=== PATIENT | male | born 1985 | race Native Hawaiian/Other Pacific Islander ===

== ENCOUNTER 2016-11-09 11:07 | Inpatient (IN) | payer MEDICAID, OTHER ==
[2016-11-09 12:29] LABS: BASO # 0.1 K/uL (0.0-0.2); BASO % 0.8 % (0.0-2.0); EOS # 0.1 K/uL (0.0-0.7); EOS % 0.6 % (0.0-4.0); HEMATOCRIT 45.5 % (35.0-51.0); LYMPH # 2.3 K/uL (1.0-4.3); MEAN CELL VOLUME 86.6 fl (80.0-94.0); MEAN CORPUSCULAR HEMOGLOBIN 28.3 pg (27.0-31.0); MEAN CORPUSCULAR HGB CONC 32.7 g/dL (33.0-37.0); MONO # 0.9 K/uL (0.0-0.8); NEUT # 11.8 K/uL (1.8-7.0); NEUT % 77.6 % (50.0-75.0); NRBC % 0.1 % (0.0-0.0); RED CELL DISTRIBUTION WIDTH 13.6 % (11.5-14.5); WHITE BLOOD COUNT 15.3 K/uL (4.8-10.8)
[2016-11-09 12:40] LABS: ALB/GLOB RATIO 1.3 (1.0-2.1); ALCOHOL SERUM < 10 mg/dl (0-10); ALKALINE PHOSPHATASE 81 U/L (38-126); ALT/SGPT 79 U/L (21-72); AST/SGOT 44 U/L (17-59); BLOOD UREA NITROGEN 13 mg/dl (9-20); CALCIUM 9.4 mg/dL (8.4-10.2); CARBON DIOXIDE 24 mmol/L (22-30); CHLORIDE 102 mmol/L (98-107); GFR AFRICAN-AMERICAN > 60; GLUCOSE,RANDOM 111 mg/dL (75-110); MAGNESIUM 2.2 MG/DL (1.6-2.3); POTASSIUM 4.8 MMOL/L (3.6-5.0); SODIUM 138 mmol/l (132-148); TOTAL PROTEIN 8.1 G/DL (6.3-8.2)
[2016-11-09] MEDS ORDERED: Sodium Chloride 0.9% 1,000 ML IV STA (12:43)
--- NOTE | 2016-11-09 12:47 | CT ---
PROCEDURE: CT HEAD WITHOUT CONTRAST. HISTORY: nystagmus COMPARISON: None available. TECHNIQUE: Axial computed tomography images were obtained through the head/brain without intravenous contrast. Radiation dose: Total exam DLP = 1474 mGy-cm. This CT exam was performed using one or more of the following dose reduction techniques: Automated exposure control, adjustment of the mA and/or kV according to patient size, and/or use of iterative reconstruction technique. FINDINGS: HEMORRHAGE: No intracranial hemorrhage. BRAIN: No mass effect or edema. No atrophy or chronic microvascular ischemic changes. VENTRICLES: Unremarkable. No hydrocephalus. CALVARIUM: Unremarkable. PARANASAL SINUSES: Unremarkable as visualized. No significant inflammatory changes. MASTOID AIR CELLS: Unremarkable as visualized. No inflammatory changes. OTHER FINDINGS: None. IMPRESSION: Normal CT of the Head.
--- NOTE | 2016-11-09 14:13 | CARD ---
APPROVED REPORT EKG Measurement Heart [id number] [place] [id number] <Conclusion> Sinus tachycardia Otherwise normal ECG
--- NOTE | 2016-11-09 15:32 | RAD ---
HISTORY: tachycardia COMPARISON: No prior. FINDINGS: LUNGS: No active pulmonary disease. PLEURA: No significant pleural effusion identified, no pneumothorax apparent. CARDIOVASCULAR: Normal. OSSEOUS STRUCTURES: No significant abnormalities. VISUALIZED UPPER ABDOMEN: Normal. OTHER FINDINGS: None. IMPRESSION: No active disease.
--- NOTE | 2016-11-09 15:52 | ED PDOC ---
HPI: Psych/Substance Abuse Time Seen by Provider: 11/09/16 11:45 Chief Complaint (Nursing): Psychiatric Evaluation Chief Complaint (Provider): pysch eval Additional Complaint(s): 31yo M in ED for eval of depression not talking, eating or drinking x 1 week. father states that he has similar episode in the past.pt is compliant with Rx medication dosages. father denies any noted recent trauma, injury, fever, difficulty with breathing , vomiting , diarrhea, hematuira, dec urination, skin lesions, head injury, foreign travel,. Past Medical History Reviewed: Historical Data, Nursing Documentation, Vital Signs Vital Signs: Last Vital Signs Temp 98.1 F 11/09/16 11:14 Pulse 124 H 11/09/16 11:14 Resp 16 11/09/16 11:14 BP 156/108 H 11/09/16 11:14 Pulse Ox 97 11/09/16 11:14 - Medical History PMH: No Chronic Diseases, Depression - Family History Family History: States: No Known Family Hx - Allergies Allergies/Adverse Reactions: Allergies Allergy/AdvReac Type Severity Reaction Status Date / Time No Known Allergies Allergy Verified 11/09/16 11:14 Review of Systems ROS Statement: Except As Marked, All Systems Reviewed And Found Negative Psych: Positive for: Depression Physical Exam - Reviewed Nursing Documentation Reviewed: Yes Vital Signs Reviewed: Yes - Physical Exam Appears: Positive for: Non-toxic, No Acute Distress Head Exam: Positive for: ATRAUMATIC, NORMAL INSPECTION, NORMOCEPHALIC Skin: Positive for: Normal Color, Warm, DRY Eye Exam: Positive for: EOMI, Normal appearance, PERRL ENT: Positive for: Normal ENT Inspection Neck: Positive for: Normal, Painless ROM Cardiovascular/Chest: Positive for: Regular Rate, Rhythm Respiratory: Positive for: CNT, Normal Breath Sounds Gastrointestinal/Abdominal: Positive for: Normal Exam, Bowel Sounds, Soft Back: Positive for: Normal Inspection Extremity: Positive for: Normal ROM Neurologic/Psych: Positive for: Alert, Oriented, Other (not willing to speak, crying ) - Laboratory Results Result Diagrams: 11/09/16 12:15 11/09/16 12:15 - ECG ECG Rhythm: Positive for: Normal QRS, Normal ST Segment, Sinus Tachycardia O2 Sat by Pulse Oximetry: 97 - Radiology X-Ray: Interpreted by Ok X-Ray Interpretation: No Acute Disease - Progress ED Course And Treament: impression: Catonic Pt will be evaluated by crisis however pt will be medically evaluated to be cleared. PT with elevated WBC. pt will get cbc/cmp/UA/drug screen/asa/tylenol level/chest xray/ekg/CAt scan pt given fluids IV VISH Orourke MD aware crisis made aware-who consulted MD Lashonda-suggested to provide pt with ativan IM for cataonia. pt given ativan 2mg IM and pt drastically improved, now able to speak and eat. PT signed in voluntarily Medical Decision Making Medical Decision Making: pt to be admitted for major depressive d/o under MD lashonda. US: negative for UTI. WBC elevation may be stress induced. chest xray engative. pt well appearing and afrebrile in ED. pt not c/o of DIEGO and much more alert, tolerating PO well no indication for meningitis work up at this time. Disposition - Clinical Impression Clinical Impression: Major depression - Patient ED Disposition Is Patient to be Admitted: Yes - Disposition Disposition Time: 17:17 Condition: STABLE - Pt Status Changed To: Hospital Disposition Of: Inpatient - Admit Certification Admit to Inpatient:: After my assessment, the patient will require hospitalization for at least two midnights. This is because of the severity of symptoms shown, intensity of services needed, and/or the medical risk in this patient being treated as an outpatient. - POA Present On Arrival: None
[2016-11-09 16:59] LABS: RBC URINE 4 /hpf (0-3); URINE BACTERIA OCC (<OCC); URINE BILIRUBIN NEGATIVE (NEGATIVE); URINE BLOOD NEGATIVE (NEGATIVE); URINE COLOR YELLOW (YELLOW); URINE GLUCOSE (UA) NEG (Normal); URINE KETONE NEGATIVE (NEGATIVE); URINE LEUKOCYTE ESTERASE NEG Leu/uL (Negative); URINE PROTEIN 30 mg/dL (NEGATIVE); URINE UROBILINOGEN 0.2-1.0 mg/dL (0.2-1.0); WBC URINE 2 /hpf (0-5)
[2016-11-09] MEDS ORDERED: DiphenhydrAMINE 50 mg/ml Inj IM PRN (18:32)
[2016-11-09] MEDS ORDERED: Alum-Mag Hydrox-Simethicone Susp (30 mL) PO PRN (18:32)
[2016-11-09] MEDS ORDERED: Magnesium Hydroxide Susp 30 ml UD PO PRN (18:32)
[2016-11-09 19:08] LABS: CHOLESTEROL 189 mg/dL (0-199)
--- NOTE | 2016-11-10 12:55 | CARD ---
APPROVED REPORT EKG Measurement Heart [id number] <Conclusion> Normal sinus rhythm Normal ECG
[2016-11-10 13:12] LABS: ALB/GLOB RATIO 1.3 (1.0-2.1); ALKALINE PHOSPHATASE 78 U/L (38-126); ALT/SGPT 98 U/L (21-72); AST/SGOT 79 U/L (17-59); BILIRUBIN,TOTAL 0.5 mg/dl (0.2-1.3); BLOOD UREA NITROGEN 12 mg/dl (9-20); CALCIUM 9.3 mg/dL (8.4-10.2); CARBON DIOXIDE 26 mmol/L (22-30); CHLORIDE 101 mmol/L (98-107); GFR AFRICAN-AMERICAN > 60; GLUCOSE,RANDOM 110 mg/dL (75-110); POTASSIUM 4.2 MMOL/L (3.6-5.0); SODIUM 137 mmol/l (132-148); TOTAL PROTEIN 7.6 G/DL (6.3-8.2)
--- NOTE | 2016-11-10 13:41 | PCM.RRTMUL ---
FLARE STITCHER Nurse Assessment - Situation FLARE STITCHER Responder Arrival Time:: 12:16 Location:: [facility] FLARE STITCHER Reason for Call: Change in Mental Status FLARE STITCHER Called By: RN - IV IV Inserted during FLARE STITCHER?: No - Respiratory Oxygen Delivery Method:: Room Air Received Nebulizer Treatments:: No Was the Patient Ventilated with Bag/Mask 100% O2?: No Secretions Suctioned?: No Was the Patient Intubated?: No - Medication Medications Administered During FLARE STITCHER :: Ativan 2mg IM - Diagnostic Test Ordered EKG:: Yes Chest X-Ray:: No CT Scan:: No - Stat Labs Ordered FLARE STITCHER Stat Labs Ordered:: CBC, BMP, LACTIC ACID CPR started during FLARE STITCHER?: No - Vital Signs Blood Pressure:: 139/91 Pulse Rate:: 101 Respiratory Rate:: 23 Oxygen Saturation:: 97 - Jon Coma Scale Coma Scale Eye Opening:: Spontaneous Coma Scale Motor:: Obeys Commands Movement Coma Scale Verbal:: No response Coma Scale Total:: 11 - Time FLARE STITCHER Ended Time FLARE STITCHER Ended:: 12:30 - Vital Signs at end of FLARE STITCHER Blood Pressure:: 134/85 Pulse Rate:: 98 Respiratory Rate:: 21 Temperature:: 98.4 F O2 Sat by Pulse Oximetry:: 95 - Recommendations 5) FLARE STITCHER Level of Care Recommendations: Remain in current setting 6) Notifications: Attending Physician I.Reason for FLARE STITCHER - A) Acute Change in Patient: (Select all that apply): Acute change in mental status (Non responsive, eyes open) Subjective: FLARE STITCHER Time: 12:20pm FLARE STITCHER Location: Psych Unit FLARE STITCHER Reason: Nonresponsive S: FLARE STITCHER called by RN bc the patient was found to be unresponsive to the nurse. On arrival, the patient was noted with be lying on the bed with his eyes open and not responsiveness to voice or pain. O: FLARE STITCHER Vitals (12:25pm): Temp 97.7, BP 139/91, HR 94, 96% on Rm air FLARE STITCHER Vitals (12:28pm): Temp 97.7, BP134/85, HR 98, 94% on Rm air General: Pt seen lying in bed, patient is awake with eyes open, difficult to ascern if pt is oriented. Verbally unresponsive but obeys commands. NAD Cardiac: Normal S1, S2 Lungs: Clear to auscultation BL Peripheral: Neurological: PERRLA, Flaccid Rigidity, No incontinence, Unable to evaluate cranial nerves, flat affect FLARE STITCHER Interventions: 1) CBC, CMP, CK, TSH, Prolactin, Serum Tox 2) ECG A/P: 31 yo male w/ a hx of major depressive disorder and catatonia was found unresponsive with eyes open on his bed with a normal ECG and normal vital signs 1. Follow Labs FLARE STITCHER End Time: 12:30pm FLARE STITCHER Resident: Dr. Ruddy Cantu FLARE STITCHER Leader: Dr. Pedraza
[2016-11-10 13:45] LABS: THYROID STIMULATING HORMONE 1.44 mIU/ML (0.46-4.68)
--- NOTE | 2016-11-10 14:54 | PCM.PSYCH ---
Initial Psychiatric Evaluation - Initial Psychiatric Evaluation Type of Admission: Voluntary Legal Status: Capacity Chief Complaint (in patient's own words): "I'm depressed." Patient's Reaction to Hospitalization: HPI: 31yo [place] male referred by Dr. Whitten due to catatonic. As per history patient has been catatonic for 2 days w/ poor sleep and appetite. Patient has a history of depression since his mother . He was a limited historian due to his periods of catatonia and after he recovered s/p receiving Ativan, he still spoke very slowly w/ poverty of speech. Denies AH/VH/SI/HI. PPHx: Outpatient tx w. Dr. Whitten, currently prescribed Seroquel and Remeron. Patient has a h/o admission to [facility] 4 years ago. MHx: HTN ALL: NKDA SHx: Denies drugs/etoh. Current Medications: Active Medications Generic Name Dose Route Start Last Admin Trade Name Freq PRN Reason Stop Dose Admin Acetaminophen 650 mg 11/09/16 18:32 Tylenol 325mg Tab PO Q4 PRN Fever >100.4 F Al Hydrox/Mg Hydrox/Simethicone 30 ml 11/09/16 18:32 Maalox Plus 30 Ml PO Q4 PRN Dyspepsia Diphenhydramine HCl 50 mg 11/09/16 18:32 11/09/16 21:39 Benadryl IM 50 mg Q6 PRN Administration Extrapyramidal S/S Unable PO Diphenhydramine HCl 50 mg 11/09/16 18:32 Benadryl PO Q6 PRN Extrapyramidal Symptoms Haloperidol 5 mg 11/09/16 18:23 Haldol PO Q4 PRN Agitation Haloperidol Lactate 5 mg 11/09/16 18:23 11/09/16 21:39 Haldol IM 5 mg Q4 PRN Administration Agitation, Unable to Take PO Lorazepam 2 mg 11/09/16 18:32 Ativan PO Q4 PRN Anxiety/Agitation Lorazepam 2 mg 11/09/16 21:46 Ativan IM Q4 PRN Anxiety/Agitation,Unable PO Magnesium Hydroxide 30 ml 11/09/16 18:32 Milk Of Magnesia PO HS PRN Constipation Trazodone HCl 50 mg 11/09/16 22:00 11/10/16 02:35 Desyrel PO Not Given HS JUAN JOSE Past Psychiatric History - Past Psychiatric History Previous Treatment History: Inpatient Pertinent Medical Hx (Current Medical&Sleep Prob, Allergies): Allergies Allergy/AdvReac Type Severity Reaction Status Date / Time No Known Allergies Allergy Verified 11/09/16 11:14 Review of Systems - Psychiatric Psychiatric: As Per HPI, Abnormal Sleep Pattern, Anhedonia, Behavioral Changes, Change in Appetite, Depression, Hopelessness, Other (Catatonia) Mental Status Examination - Personal Presentation Personal Presentation: Looks stated age - Affect Affect: Blunted - Motor Activity Motor Activity: Calm - Reliability in Providing Information Reliability in Providing Information: Other (Poor due to catatonia) - Speech Speech: Coherent, Other (Poverty of speech) - Formal Thought Process Formal Thought Process: Other (Poverty of speech) - Obsessions/Compulsions Obsessions: No Compulsions: No - Cognitive Functions Orientation: Person, Place, Situation, Time Sensorium: Alert Estimate of Intelligence: Average Judgement: Intact, as evidence by: Insight regarding need for hospitalization Memory: Recent intact, as evidence by: Ability to recall events of the day, Remote intact, as evidenced by: Abilit to recall sig. life events, Remote intact , as evidenced by: Ability to recall historical events - Risk Risk: Diminished functioning - Strength & Assets Inventory Strength & Assets Inventory: Family support, Cooperative DSM 5 DX - DSM 5 DSM 5 Diagnosis: Major Depressive Disorder w/ Catatonia; r/o psychotic disorder - Recommended/Plan of Treatment Treatment Recommendations and Plan of Treatment: -Admit to psychiatry -Continue Remeron 15 mg PO HS -Medicine consult -Neurology consult; r/o seizure d/o or other acute neurological issues -Individual and group therapy -Ativan PRN catatonia Projected ELOS: 5-7 days Discharge Plan and Discharge Criteria: Discharge when psychiatrically stable
--- NOTE | 2016-11-10 18:30 | CP.PCM.CON ---
History of Present Illness - History of Present Illness History of Present Illness: 31 y/o male with PMH depression was brought to ER for psych eval by his father since patient has not been eating talking, drinking for 1 week. As per chart and staff patient has been suffering from depression for the last 5 years since his mom . He has history of severe depression with catatonia. He was admitted in psych unit after being medically cleared by ER . While in psych TRUCK SALES MANAGER was called for patient being unresponsive and catatonic Patient found to be hemodynamically stable, afebrile in NAD, non verbal but able to follow simple commands , with no neuro deficits Medicine responded to TRUCK SALES MANAGER and also called for medical consult Patient not responding to questions, ambulating in unit ,tolerating PO intake No recent trauma , fever vomiting , abdominal pain , nausea, hematuria , head injury, trauma , travel as per father Allergies ; NKDA PMH Depression Medications ;None Surgery ; unable to obtain Family history ; unable to obtain Social history ; unable to obtain ROS ; as per father no fever , nausea, vomiting , chills, urinary symptoms, hematuria , DIEGO, head trauma , recent traval Past Patient History - Infectious Disease Hx of Infectious Diseases: None - Tetanus Immunizations Tetanus Immunization: Unknown - Past Medical History & Family History Past Medical History?: Yes Past Family History: Reviewed and not pertinent - Past Social History Smoking Status: Never Smoked Chewing Tobacco Use: No Cigar Use: No Alcohol: None Home Situation {Lives}: With Family - CARDIAC Hx Cardiac Disorders: No Hx Hypertension: No - PULMONARY Hx Tuberculosis: No - NEUROLOGICAL HX Cerebrovascular Accident: No Hx Seizures: No - HEMATOLOGICAL/ONCOLOGICAL Hx Cancer: No Hx Human Immunodeficiency Virus (HIV): No - GENITOURINARY/GYNECOLOGICAL Hx Sexually Transmitted Disorders: No - PSYCHIATRIC Hx Substance Use: No Meds Allergies/Adverse Reactions: Allergies Allergy/AdvReac Type Severity Reaction Status Date / Time No Known Allergies Allergy Verified 11/09/16 11:14 - Medications Medications: Current Medications Acetaminophen (Tylenol 325mg Tab) 650 mg PO Q4 PRN PRN Reason: Fever >100.4 F Al Hydrox/Mg Hydrox/Simethicone (Maalox Plus 30 Ml) 30 ml PO Q4 PRN PRN Reason: Dyspepsia Diphenhydramine HCl (Benadryl) 50 mg IM Q6 PRN PRN Reason: Extrapyramidal S/S Unable PO Last Admin: 11/09/16 21:39 Dose: 50 mg Diphenhydramine HCl (Benadryl) 50 mg PO Q6 PRN PRN Reason: Extrapyramidal Symptoms Haloperidol (Haldol) 5 mg PO Q4 PRN PRN Reason: Agitation Haloperidol Lactate (Haldol) 5 mg IM Q4 PRN PRN Reason: Agitation, Unable to Take PO Last Admin: 11/09/16 21:39 Dose: 5 mg Lorazepam (Ativan) 2 mg PO Q4 PRN PRN Reason: Anxiety/Agitation Lorazepam (Ativan) 2 mg IM Q4 PRN PRN Reason: Anxiety/Agitation,Unable PO Last Admin: 11/10/16 17:26 Dose: 2 mg Magnesium Hydroxide (Milk Of Magnesia) 30 ml PO HS PRN PRN Reason: Constipation Mirtazapine (Remeron) 15 mg PO HS JUAN JOSE Physical Exam - Constitutional Appears: Well, No Acute Distress, Other (overweight ) - Head Exam Head Exam: ATRAUMATIC, NORMAL INSPECTION, NORMOCEPHALIC - Eye Exam Eye Exam: EOMI, Normal appearance, PERRL Pupil Exam: NORMAL ACCOMODATION - ENT Exam ENT Exam: Mucous Membranes Moist, Normal Exam - Neck Exam Neck exam: Positive for: Full Rom, Normal Inspection - Respiratory Exam Respiratory Exam: Clear to Auscultation Bilateral, NORMAL BREATHING PATTERN. absent: Rhonchi, Wheezes - Cardiovascular Exam Cardiovascular Exam: REGULAR RHYTHM, RRR, +S1, +S2. absent: JVD - GI/Abdominal Exam GI & Abdominal Exam: Normal Bowel Sounds, Soft. absent: Distended, Guarding, Rebound, Tenderness - Rectal Exam Rectal Exam: Deferred - Extremities Exam Extremities exam: Positive for: normal capillary refill, normal inspection, pedal pulses present. Negative for: pedal edema - Neurological Exam Neurological exam: Alert, CN II-XII Intact Additional comments: non verbal good eye contact follows simple commands moves all 4 extremities - Psychiatric Exam Psychiatric exam: Flat Affect - Skin Skin Exam: Dry, Intact, Normal Color, Warm Results - Vital Signs Recent Vital Signs: Last Vital Signs Temp 97.3 F L 11/10/16 17:53 Pulse 112 H 11/10/16 17:53 Resp 20 11/10/16 17:53 BP 136/96 H 11/10/16 17:53 Pulse Ox 99 11/10/16 17:53 - Labs Result Diagrams: 11/09/16 12:15 11/10/16 12:30 Labs: Laboratory Results - last 24 hr 11/09/16 11/10/16 18:58 12:30 Sodium 137 Potassium 4.2 Chloride 101 Carbon Dioxide 26 Anion Gap 14 BUN 12 Creatinine 0.7 L Est GFR ( Amer) > 60 Est GFR (Non-Af Amer) > 60 Random Glucose 110 Calcium 9.3 Total Bilirubin 0.5 AST 79 H D ALT 98 H D Alkaline Phosphatase 78 Total Creatine Kinase 2992 H Total Protein 7.6 Albumin 4.3 Globulin 3.2 Albumin/Globulin Ratio 1.3 Triglycerides 245 H Cholesterol 189 LDL Cholesterol Direct 103 HDL Cholesterol 43 TSH 3rd Generation 1.44 Assessment & Plan - Assessment and Plan (Free Text) Assessment: 31 y/o male with PMH depression was brought to ER for psych eval by his father since patient has not been eating talking, drinking for 1 week. As per chart and staff patient has been suffering from depression for the last 5 years since his mom . He has history of severe depression with catatonia. He was admitted in psych unit after being medically cleared by ER . While in psych TRUCK SALES MANAGER was called for patient being unresponsive and catatonic Patient found to be hemodynamically stable, afebrile in NAD, non verbal but able to follow simple commands , with no neuro deficits Medicine responded to TRUCK SALES MANAGER and also called for medical consult Patient not responding to questions, ambulating in unit ,tolerating PO intake No recent trauma , fever vomiting , abdominal pain , nausea, hematuria , head injury, trauma , travel as per father 1. Depression with catatonia CT head showed no acute pathology Ativan PRN TSH - normal patient is medically stable Continue management as per psych EEG to rule out seizure disorder Neuro eval 2. Leukocytosis Most likely reactive no signs of infection CXR showed no acute pathology UA - clear No fever 3. Elevated CPK unclear etiology Medication side effect ? continue oral hydration renal fxn is stable 4. Dyslipidemia diet no statin for now due to mild elevation of LFT-s 5. Transaminitis probably medication side effect Continue monitoring
[2016-11-11] MEDS: Dextrose 5%/0.45% NS 1,000 ML IV SCH ×4 (03:20→17:41)
[2016-11-11 07:22] LABS: MAGNESIUM 2.3 MG/DL (1.6-2.3)
[2016-11-11 07:25] LABS: HEMATOCRIT 41.5 % (35.0-51.0); MEAN CELL VOLUME 86.3 fl (80.0-94.0); MEAN CORPUSCULAR HEMOGLOBIN 28.6 pg (27.0-31.0); MEAN CORPUSCULAR HGB CONC 33.2 g/dL (33.0-37.0); RED CELL DISTRIBUTION WIDTH 13.3 % (11.5-14.5); WHITE BLOOD COUNT 11.4 K/uL (4.8-10.8)
[2016-11-11 07:50] LABS: THYROID STIMULATING HORMONE 2.47 mIU/ML (0.46-4.68)
--- NOTE | 2016-11-11 10:37 | PCM.PYCHPN ---
Psychiatric Progress Note - Psychiatric Progress Note Patient seen today, length of contact: Patient evaluated, case discussed with team, chart reviewed Patient Chief Complaint: "I'm depressed." Problems Identified/Issues Discussed: Patient continues to have periods of catatonia and is receiving PRN ativan. Patient has poor insight into these periods and does not realize they are happening during or after they occur. He reports continued depression. We discussed starting Effexor and Klonopin. Patient continues to report depressive symptoms. Neurology and medicine consults ordered. Medication Change: Yes (Start Effexor 37.5 mg PO Daily, Start Klonopin 0.5 mg PO TID) Medical Record Reviewed: Yes Mental Status Examination - Cognitive Function Orientation: Person, Place, Situation, Time Memory: Intact Attention: WNL Concentration: WNL Association: WNL Fund of Knowledge: [facility] Decription of patient's judgement and insights: Poor insight/ fair judgment - Mood Mood: Depressed - Affect Affect: Blunted - Speech Speech: Soft - Formal Thought Process Formal Thought Process: Other (Poverty of speech) Psychotic Thoughts and Behaviors: Poverty of speech/thought; periods of catatonia - Suicidal Ideation Suicidal Ideation: No - Homicidal Ideation Homicidal Ideation: No Goal/Treatment Plan - Goal/Treatment Plan Need for Continued Stay: Remain at risks for inpatient hospitalization, Severe depression anxiety, Discharge may exacerbated symptoms, Severe functional impairment Progress Toward Problem(s) and Goals/Treatment Plan: MDD w/ catatonic features; r/o psychotic disorder; r/o seizure d/o or other acute neurologic process -Continue Remeron 15 mg PO HS -Start Effexor 37.5 mg PO Daily -Start Klonopin 0.5 mg PO TID -Medicine consult -Neurology consult; r/o seizure d/o or other acute neurological issues -MRI ordered -Individual and group therapy -Ativan PRN catatonia Estimated Date of D/C: 11/15/16 - Smoking Cessation Smoking Cessation Initiated: No Reason for not providing: Not indicated
[2016-11-11 12:40] LABS: CHOLESTEROL 175 mg/dL (0-199)
[2016-11-11 13:05] LABS: T4 7.53 ug/dL (5.5-11.0)
[2016-11-11] MEDS ORDERED: Gadodiamide 287 MG/ML VIAL (15ML) IV ONE (13:42)
--- NOTE | 2016-11-11 16:28 | MRI ---
PROCEDURE: MRI BRAIN WITHOUT CONTRAST HISTORY: intracranial pathology. History of nystagmus. COMPARISON: Comparison is made to the previous CT dated 11/16/2016 TECHNIQUE: Multiplanar, multisequence MR images of the brain were obtained without intravenous contrast enhancement. FINDINGS: HEMORRHAGE: None DWI: No evidence of an acute or early subacute infarction. BRAIN PARENCHYMA: No mass effect or edema. No atrophy or chronic microvascular ischemic changes. VENTRICLES: Unremarkable. No hydrocephalus. CRANIUM: Unremarkable. ORBITS: Grossly unremarkable. PARANASAL SINUSES/MASTOIDS: Small mucosal retention cyst seen at the left maxillary sinus. VASCULAR SYSTEM: Skull base flow voids intact. OTHER FINDINGS: None. IMPRESSION: No evidence of acute pathology in the brain. No evidence of mass lesion mass effect or midline shift.
[2016-11-11] MEDS: Sodium Chloride 0.9% 1,000 ML IV SCH (22:00)
--- NOTE | 2016-11-12 01:08 | CON ---
DATE: 11/10/2016 NEUROLOGICAL INITIAL EVALUATION: REASON FOR CONSULTATION: Change in mental status. CHIEF COMPLAINT: The patient was brought in by family members with a history of not talking and eating for the last 1 week. From neurological point of view, I was called in to evaluate him for further management. HISTORY OF PRESENT ILLNESS: Mr. Tre Kay is a 31-year-old well-built, right-handed [place] male presenting with severe depression, not eating as well as drinking for the last 1 week. The reason for the trigger is not available at present. He is a college graduate and looking for the job. He denies headache. He denies visual or auditory hallucination. He does not have suicidal ideation. He seems to be depressed and speech is hypophonic. No history of headache. No history of fall. No history of trauma. No history of involuntary movement. No history of recent infection or treated with any medication. PAST MEDICAL HISTORY: Positive psychiatric history, otherwise, unremarkable. PERSONAL HISTORY: Denies smoking or alcohol use. ALLERGIES: NO KNOWN ALLERGIES. REVIEW OF SYSTEMS: A 12-point systems have been reviewed. From neurological point of view, change in mental status. MEDICATIONS: Lorazepam, Benadryl, Effexor, haloperidol, clonazepam, milk of magnesia, bromocriptine, Remeron. PHYSICAL EXAMINATION: VITAL SIGNS: Blood pressure 139/73, mean arterial pressure of 95, respiratory rate 16, temperature afebrile. NECK: Supple. No carotid bruits. HEART: Sounds are regular. LUNGS: Fair air entry. EXTREMITIES: No edema of legs. NEUROLOGIC: MENTAL STATUS: The patient is examined in the presence of a nurse and a wagon washer. He is awake. He knows where he is now. He knows the year. He knows the President. He follows 1-2 step commands. No right and left confusion. He follows 2-3 step complex commands. Speech is hypophonic and low voice. Just giving one sentence answer. He denies any trigger for his problem. CRANIAL NERVE EXAMINATION: Visual field intact. Pupils reactive to light. Extraocular movement normal. No nystagmus. No facial sensory deficit. No facial asymmetry. Hearing is normal. Tongue is midline. Good gag. MOTOR EXAMINATION: An outstretched hand with eyes closed, no drift is noted. Probably symmetric on either side. Deep tendon reflexes: Biceps, brachialis, triceps 2+ on either side. Tone is normal. No cogwheel rigidity. No resting tremor. Plantars are downgoing. SENSORY EXAMINATION: Grossly intact. Coordination: [id number] testing is intact. Gait is slow and short stepped. LABORATORY DATA: MRI of the brain, no acute pathology is noted. EKG, normal sinus rhythm. Blood workup, WBC 11.4, hemoglobin 10.8, hematocrit 41.5, platelets 347, ESR 24. Sodium 137, potassium 4.2, chloride 101, bicarbonate 26, BUN 12, creatinine 0.7, GFR more than 60. AST 79, ALT 98, total creatinine kinase is 2992. Total protein is 15 which is high also. Triglycerides 212, cholesterol 175, HDL 43, TSH 1.44, prolactin 26.9, urine for drugs tox screen is negative. RPR nonreactive. CONCLUSION: Upon reviewing his history and neurological examination, Mr. Tre Kay is not presenting with any long tract signs suggestive of neurological dysfunction. The clinical picture switched to severe depression. The patient also is presenting with possible rhabdomyolysis with CPK that is high. RECOMMENDATIONS: The patient should have IV hydration and check a followup CPK and check urine for myoglobin. The patient does not show any extrapyramidal signs. So, bromocriptine can be discontinued now. Electroencephalogram been reviewed, shows bilateral slow activities without any paroxysmal activities nor focal slowing. Recommendations from neurological point of view; no further workup is needed. The patient is in need of medical attention. Continue hydration to bring down CPK down to his normal range. The patient will be followed if needed. Agustin Coats MD
[2016-11-12] MEDS: Sodium Chloride 0.9% 1,000 ML IV SCH ×4 (03:06→22:29)
--- NOTE | 2016-11-12 08:47 | EEG ---
ELECTROENCEPHALOGRAPHIC REPORT This is a 16-channel electroencephalogram of awake and drowsy adult. During the study, photic stimulation was performed. Hyperventilation was not performed. TESTING: As far as the resting electroencephalogram, it consist of diffuse low amplitude delta activity seen in parietal and occipital leads. Persistent electrode artifact contaminated to the background rhythm from the beginning.. The photic stimulation did not evoke a driving response noted at 2-20 Hz. IMPRESSION: This is an abnormal electroencephalogram because of persistent slowing throughout the record suggestive of bilateral cerebral dysfunction. This is probably secondary to metabolic, vascular or degenerative process. Please correlate the finding with neurological and radiological studies. Agustin Coats MD MTDD
--- NOTE | 2016-11-12 10:48 | PCM.PYCHPN ---
Psychiatric Progress Note - Psychiatric Progress Note Patient seen today, length of contact: Patient evaluated, case discussed with team, chart reviewed Patient Chief Complaint: "I'm depressed." Problems Identified/Issues Discussed: Patient continues to have periods of catatonia. He is not currently saying anything to fha underwriter, but has been observed talking with people at various points in time and follows directions. He is also agreeable to showering. He is psychomotor delayed due to catatonia. Neurology consult appreciated. MRI normal. Medication Change: Yes (Increase Klonopin to 1 mg PO BID) Medical Record Reviewed: Yes Consults ordered or reviewed: Medicine consult, Neurology consult Mental Status Examination - Cognitive Function Orientation: Person, Place, Situation, Time Memory: Intact Attention: WNL Concentration: WNL Association: WNL Fund of Knowledge: [facility] Decription of patient's judgement and insights: Poor insight/ fair judgment - Mood Mood: Depressed - Affect Affect: Blunted - Speech Speech: Soft - Formal Thought Process Formal Thought Process: Other (Poverty of speech) Psychotic Thoughts and Behaviors: Poverty of speech/thought; periods of catatonia - Suicidal Ideation Suicidal Ideation: No - Homicidal Ideation Homicidal Ideation: No Goal/Treatment Plan - Goal/Treatment Plan Need for Continued Stay: Remain at risks for inpatient hospitalization, Severe depression anxiety, Discharge may exacerbated symptoms, Severe functional impairment Progress Toward Problem(s) and Goals/Treatment Plan: MDD w/ catatonic features; 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
--- NOTE | 2016-11-12 13:37 | CP.PCM.PN ---
Subjective - Date & Time of Evaluation Date of Evaluation: 11/12/16 Time of Evaluation: 13:15 - Subjective Subjective: Pt seen and examined. Lying in bed. Appeared comfortable. Denied any complaint. Objective - Vital Signs/Intake and Output Vital Signs (last 24 hours): Temp Pulse Resp BP Pulse Ox 97.7 F 90 18 148/86 99 11/12/16 06:14 11/12/16 06:14 11/12/16 06:14 11/12/16 06:14 11/11/16 09:00 - Medications Medications: Current Medications Acetaminophen (Tylenol 325mg Tab) 650 mg PO Q4 PRN PRN Reason: Fever >100.4 F Al Hydrox/Mg Hydrox/Simethicone (Maalox Plus 30 Ml) 30 ml PO Q4 PRN PRN Reason: Dyspepsia Clonazepam (Klonopin) 1 mg PO BID JUAN JOSE Diphenhydramine HCl (Benadryl) 50 mg IM Q6 PRN PRN Reason: Extrapyramidal S/S Unable PO Last Admin: 11/09/16 21:39 Dose: 50 mg Diphenhydramine HCl (Benadryl) 50 mg PO Q6 PRN PRN Reason: Extrapyramidal Symptoms Haloperidol (Haldol) 5 mg PO Q4 PRN PRN Reason: Agitation Haloperidol Lactate (Haldol) 5 mg IM Q4 PRN PRN Reason: Agitation, Unable to Take PO Last Admin: 11/09/16 21:39 Dose: 5 mg Sodium Chloride (Sodium Chloride 0.9%) 1,000 mls @ 200 mls/hr IV .Q5H [facility] Stop: 11/13/16 11:19 Last Admin: 11/12/16 11:51 Dose: 200 mls/hr Lorazepam (Ativan) 2 mg PO Q4 PRN PRN Reason: Anxiety/Agitation Last Admin: 11/12/16 10:50 Dose: 2 mg Lorazepam (Ativan) 2 mg IM Q4 PRN PRN Reason: Anxiety/Agitation,Unable PO Last Admin: 11/11/16 10:16 Dose: 2 mg Magnesium Hydroxide (Milk Of Magnesia) 30 ml PO HS PRN PRN Reason: Constipation Mirtazapine (Remeron) 15 mg PO HS [facility] Last Admin: 11/11/16 21:16 Dose: 15 mg Venlafaxine HCl (Effexor) 37.5 mg PO DAILY JUAN JOSE Last Admin: 11/12/16 08:23 Dose: 37.5 mg - Labs Labs: 11/10/16 06:00 11/10/16 12:30 - Constitutional Appears: No Acute Distress - Head Exam Head Exam: ATRAUMATIC - Eye Exam Eye Exam: absent: Scleral icterus - ENT Exam ENT Exam: Mucous Membranes Moist - Neck Exam Neck Exam: absent: Meningismus - Respiratory Exam Respiratory Exam: absent: Rhonchi, Wheezes, Respiratory Distress - Cardiovascular Exam Cardiovascular Exam: REGULAR RHYTHM, +S1, +S2 - GI/Abdominal Exam GI & Abdominal Exam: Soft. absent: Tenderness - Rectal Exam Rectal Exam: Deferred - Extremities Exam Extremities Exam: absent: Calf Tenderness, Tenderness - Back Exam Back Exam: absent: tenderness - Neurological Exam Neurological Exam: Alert, Oriented x3 - Psychiatric Exam Psychiatric exam: Normal Affect - Skin Skin Exam: Dry, Intact Assessment and Plan - Assessment and Plan (Free Text) Assessment: 31 yo male with history of Depression admitted to psyche unit because of severe depression and catatonia. 1. Depression with catatonia CT head showed no acute pathology Ativan 2mg PO q 4hrs PRN for agitation 2. Leukocytosis WBC: 11.4 lower than before afebrile probably reactive 3. Elevated CPK probably secondary to neuroleptic CPK down to 1499 continue IV hydration until CPK is below 1000 renal function stable 4. Dyslipidemia low fat diet 5. Transaminitis probably adverse drug effect Continue monitoring
[2016-11-13] MEDS: Sodium Chloride 0.9% 1,000 ML IV SCH ×2 (03:41→09:04)
[2016-11-13 07:49] LABS: ALB/GLOB RATIO 1.3 (1.0-2.1); ALKALINE PHOSPHATASE 71 U/L (38-126); ALT/SGPT 82 U/L (21-72); AST/SGOT 40 U/L (17-59); BILIRUBIN,TOTAL 0.6 mg/dl (0.2-1.3); BLOOD UREA NITROGEN 9 mg/dl (9-20); CALCIUM 8.8 mg/dL (8.4-10.2); CARBON DIOXIDE 27 mmol/L (22-30); CHLORIDE 103 mmol/L (98-107); GFR AFRICAN-AMERICAN > 60; GLUCOSE,RANDOM 100 mg/dL (75-110); POTASSIUM 4.4 MMOL/L (3.6-5.0); SODIUM 138 mmol/l (132-148); TOTAL PROTEIN 7.3 G/DL (6.3-8.2)
--- NOTE | 2016-11-13 08:34 | PCM.PYCHPN ---
Psychiatric Progress Note - Psychiatric Progress Note Patient seen today, length of contact: Patient evaluated, case discussed with team, chart reviewed, 35 min Patient Chief Complaint: "I'm depressed." Problems Identified/Issues Discussed: Patient continues to have periods of catatonia. He is only intermittently talkative. Psychomotor delayed. He is responsive and follows directions but at times stares off. He has been observed eating and drinking appropriately. Medication Change: Yes (Increase Effexor to 75 mg PO Daily) Medical Record Reviewed: Yes Consults ordered or reviewed: Medicine Consult, Neurology Consult Mental Status Examination - Cognitive Function Orientation: Person, Place, Situation, Time Memory: Intact Attention: WNL Concentration: WNL Association: WNL Fund of Knowledge: [facility] Decription of patient's judgement and insights: Poor insight/ fair judgment - Mood Mood: Depressed - Affect Affect: Blunted - Speech Speech: Soft - Formal Thought Process Formal Thought Process: Other (Poverty of speech) Psychotic Thoughts and Behaviors: Poverty of speech/thought; periods of catatonia - Suicidal Ideation Suicidal Ideation: No - Homicidal Ideation Homicidal Ideation: No Goal/Treatment Plan - Goal/Treatment Plan Need for Continued Stay: Remain at risks for inpatient hospitalization, Severe depression anxiety, Discharge may exacerbated symptoms, Severe functional impairment Progress Toward Problem(s) and Goals/Treatment Plan: MDD w/ catatonic features; 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
[2016-11-13] MEDS: Venlafaxine 75 mg ER Cap PO SCH (12:00)
[2016-11-14 08:03] LABS: ALB/GLOB RATIO 1.4 (1.0-2.1); ALKALINE PHOSPHATASE 71 U/L (38-126); ALT/SGPT 77 U/L (21-72); AST/SGOT 32 U/L (17-59); BILIRUBIN,TOTAL 0.5 mg/dl (0.2-1.3); BLOOD UREA NITROGEN 14 mg/dl (9-20); CALCIUM 9.2 mg/dL (8.4-10.2); CARBON DIOXIDE 29 mmol/L (22-30); CHLORIDE 101 mmol/L (98-107); GFR AFRICAN-AMERICAN > 60; GLUCOSE,RANDOM 99 mg/dL (75-110); POTASSIUM 4.3 MMOL/L (3.6-5.0); SODIUM 139 mmol/l (132-148); TOTAL PROTEIN 7.7 G/DL (6.3-8.2)
[2016-11-14] MEDS: Venlafaxine 75 mg ER Cap PO SCH (09:05)
--- NOTE | 2016-11-14 10:35 | PCM.PYCHPN ---
Psychiatric Progress Note - Psychiatric Progress Note Patient seen today, length of contact: Patient evaluated, case discussed with team, chart reviewed, 35 min Patient Chief Complaint: "I'm depressed." Problems Identified/Issues Discussed: Patient continues to have periods of catatonia. He is only intermittently talkative. Psychomotor delayed. He is responsive and follows directions but at times stares off. He has been observed eating and drinking appropriately. He gave proposal lead writer permission to speak with his father. He was encouraged to walk around the unit with staff and engage in groups. Medication Change: Yes (Stop Klonopin, start Ativan) Medical Record Reviewed: Yes Mental Status Examination - Cognitive Function Orientation: Person, Place, Situation, Time Memory: Intact Attention: WNL Concentration: WNL Association: WNL Fund of Knowledge: [facility] Decription of patient's judgement and insights: Poor insight/ fair judgment - Mood Mood: Depressed - Affect Affect: Blunted - Speech Speech: Soft - Formal Thought Process Formal Thought Process: Other (Poverty of speech) Psychotic Thoughts and Behaviors: Poverty of speech/thought; periods of catatonia - Suicidal Ideation Suicidal Ideation: No - Homicidal Ideation Homicidal Ideation: No Goal/Treatment Plan - Goal/Treatment Plan Need for Continued Stay: Remain at risks for inpatient hospitalization, Severe depression anxiety, Discharge may exacerbated symptoms, Severe functional impairment Progress Toward Problem(s) and Goals/Treatment Plan: MDD w/ catatonic features; 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
[2016-11-15 07:39] LABS: ALB/GLOB RATIO 1.3 (1.0-2.1); ALKALINE PHOSPHATASE 66 U/L (38-126); ALT/SGPT 74 U/L (21-72); AST/SGOT 28 U/L (17-59); BILIRUBIN,TOTAL 0.5 mg/dl (0.2-1.3); BLOOD UREA NITROGEN 15 mg/dl (9-20); CALCIUM 9.2 mg/dL (8.4-10.2); CARBON DIOXIDE 30 mmol/L (22-30); CHLORIDE 100 mmol/L (98-107); GFR AFRICAN-AMERICAN > 60; GLUCOSE,RANDOM 99 mg/dL (75-110); POTASSIUM 4.6 MMOL/L (3.6-5.0); SODIUM 138 mmol/l (132-148); TOTAL PROTEIN 7.5 G/DL (6.3-8.2)
[2016-11-15] MEDS: Venlafaxine 75 mg ER Cap PO SCH (09:14)
--- NOTE | 2016-11-15 10:05 | PCM.PYCHPN ---
Psychiatric Progress Note - Psychiatric Progress Note Patient seen today, length of contact: Patient evaluated, case discussed with team, chart reviewed, 35 min Patient Chief Complaint: "I'm depressed." Problems Identified/Issues Discussed: Patient has less periods of catatonia, though he continues to have periods with significant psychmotor delay, poverty of speech and staring blankly at people. Ativan helps w/ the episodes of catatonia. Patient denies AH/VH/SI/HI. He has been observed eating and drinking appropriately. He was encouraged to walk around the unit with staff and engage in groups. Professor Of Legal Studies left a message for the patient's father (w/ patient's permission). Medication Change: No Medical Record Reviewed: Yes Mental Status Examination - Cognitive Function Orientation: Person, Place, Situation, Time Memory: Intact Attention: WNL Concentration: WNL Association: WNL Fund of Knowledge: WN Decription of patient's judgement and insights: Poor insight/ fair judgment - Mood Mood: Depressed - Affect Affect: Blunted - Speech Speech: Soft - Formal Thought Process Formal Thought Process: Other (Poverty of speech) Psychotic Thoughts and Behaviors: Poverty of speech/thought; periods of catatonia - Suicidal Ideation Suicidal Ideation: No - Homicidal Ideation Homicidal Ideation: No Goal/Treatment Plan - Goal/Treatment Plan Need for Continued Stay: Remain at risks for inpatient hospitalization, Severe depression anxiety, Discharge may exacerbated symptoms, Severe functional impairment Progress Toward Problem(s) and Goals/Treatment Plan: MDD w/ catatonic features; 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
[2016-11-16] MEDS: Venlafaxine 75 mg ER Cap PO SCH (08:42)
--- NOTE | 2016-11-16 13:11 | PCM.PYCHPN ---
Psychiatric Progress Note - Psychiatric Progress Note Patient seen today, length of contact: discussed with team Patient Chief Complaint: i feel better Problems Identified/Issues Discussed: pt is doing better. his speech and movements are more spontaneous and fluid. he is reporting he feels less depressed. he is sleeping 8 hours a night. Medication Change: No Medical Record Reviewed: Yes Mental Status Examination - Cognitive Function Orientation: Person, Place, Situation, Time Memory: Intact Attention: WNL Concentration: WNL Association: WN Fund of Knowledge: [facility] Decription of patient's judgement and insights: fair - Mood Mood: Depressed - Affect Affect: Blunted - Speech Speech: Soft - Formal Thought Process Formal Thought Process: Other (Poverty of speech) - Suicidal Ideation Suicidal Ideation: No - Homicidal Ideation Homicidal Ideation: No Goal/Treatment Plan - Goal/Treatment Plan Need for Continued Stay: Remain at risks for inpatient hospitalization, Severe depression anxiety, Discharge may exacerbated symptoms, Severe functional impairment Progress Toward Problem(s) and Goals/Treatment Plan: continue current treatment per primary team Estimated Date of D/C: 11/19/16
[2016-11-17] MEDS: Venlafaxine 75 mg ER Cap PO SCH (08:57)
--- NOTE | 2016-11-17 13:30 | PCM.PYCHPN ---
Psychiatric Progress Note - Psychiatric Progress Note Patient seen today, length of contact: discussed with team Patient Chief Complaint: i am doing a little better i guess Problems Identified/Issues Discussed: pt states "its hard to tell, but i guess better" when asked about his mood. he is slow to respond to questions. sleep is improved. no c/o medication side effects. Medication Change: No Medical Record Reviewed: Yes Mental Status Examination - Cognitive Function Orientation: Person, Place, Situation, Time Memory: Intact Attention: WNL Concentration: WNL Association: WNL Fund of Knowledge: [place] Decription of patient's judgement and insights: fair - Mood Mood: Depressed - Affect Affect: Blunted - Speech Speech: Soft - Formal Thought Process Formal Thought Process: Other (Poverty of speech) - Suicidal Ideation Suicidal Ideation: No - Homicidal Ideation Homicidal Ideation: No Goal/Treatment Plan - Goal/Treatment Plan Need for Continued Stay: Remain at risks for inpatient hospitalization, Severe depression anxiety, Discharge may exacerbated symptoms, Severe functional impairment Progress Toward Problem(s) and Goals/Treatment Plan: continue current treatment per primary team Estimated Date of D/C: 11/19/16
[2016-11-18] MEDS: Venlafaxine 75 mg ER Cap PO SCH (08:47)
--- NOTE | 2016-11-18 10:29 | PCM.PYCHPN ---
Psychiatric Progress Note - Psychiatric Progress Note Patient seen today, length of contact: Patient evaluated, case discussed with team, chart reviewed, 35 min Patient Chief Complaint: "I'm okay" Problems Identified/Issues Discussed: No significant events over the weekend. Patient has less periods of catatonia, though he continues to have periods with significant psychmotor delay and poverty of speech. Registered Respiratory Technician discussed tapering down the Ativan due to his gradual improvement of catatonia. Patient denies AH/VH/SI/HI. He has been observed eating and drinking appropriately. He was encouraged to walk around the unit with staff and engage in groups. Medication Change: Yes (Lower Ativan to 0.5 mg PO TID) Medical Record Reviewed: Yes Mental Status Examination - Cognitive Function Orientation: Person, Place, Situation, Time Memory: Intact Attention: WNL Concentration: WNL Association: WNL Fund of Knowledge: WN Decription of patient's judgement and insights: Poor I/ fair J - Mood Mood: Depressed - Affect Affect: Blunted - Speech Speech: Soft - Formal Thought Process Formal Thought Process: Other (Poverty of speech) Psychotic Thoughts and Behaviors: Denies AH/VH/paranoia - Suicidal Ideation Suicidal Ideation: No - Homicidal Ideation Homicidal Ideation: No Goal/Treatment Plan - Goal/Treatment Plan Need for Continued Stay: Remain at risks for inpatient hospitalization, Severe depression anxiety, Discharge may exacerbated symptoms, Severe functional impairment Progress Toward Problem(s) and Goals/Treatment Plan: MDD w/ catatonic features; 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
[2016-11-19] MEDS: Venlafaxine 75 mg ER Cap PO SCH (08:44)
--- NOTE | 2016-11-19 12:17 | PCM.PYCHPN ---
Psychiatric Progress Note - Psychiatric Progress Note Patient seen today, length of contact: Patient evaluated, case discussed with team, chart reviewed, 35 min Patient Chief Complaint: "I'm okay" Problems Identified/Issues Discussed: Patient has less periods of catatonia, is more talkative and interactive with others. He is attending groups and participating appropriately. He discussed his chronic depression, which started after his mom . He was tearful during the interview. Patient denies AH/VH/SI/HI. He has been observed eating and drinking appropriately. Medication Change: No Medical Record Reviewed: Yes Mental Status Examination - Cognitive Function Orientation: Person, Place, Situation, Time Memory: Intact Attention: WNL Concentration: WNL Association: WNL Fund of Knowledge: [facility] Decription of patient's judgement and insights: Fair I/J - Mood Mood: Depressed - Affect Affect: Constricted - Speech Speech: Soft - Formal Thought Process Formal Thought Process: Other (Poverty of speech) Psychotic Thoughts and Behaviors: Denies AH/VH/paranoia - Suicidal Ideation Suicidal Ideation: No - Homicidal Ideation Homicidal Ideation: No Goal/Treatment Plan - Goal/Treatment Plan Need for Continued Stay: Remain at risks for inpatient hospitalization, Severe depression anxiety, Discharge may exacerbated symptoms Progress Toward Problem(s) and Goals/Treatment Plan: MDD w/ catatonic features; 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
[2016-11-20 05:31] VITALS: O2SAT 20
--- NOTE | 2016-11-20 08:06 | PCM.PYCHPN ---
Psychiatric Progress Note - Psychiatric Progress Note Patient seen today, length of contact: Patient evaluated, case discussed with team, chart reviewed, 35 min Patient Chief Complaint: "I'm okay" Problems Identified/Issues Discussed: Patient continues to improve clinically. No periods of catatonia. Patient is psychomotor delayed at times, but is otherwise significantly improved. He continues to have depressed mood and constricted affect. +Improved sleep/ appetite. He is attending groups and participating appropriately. Patient denies AH/VH/SI/HI. He has been observed eating and drinking appropriately. Medication Change: Yes (Lower Ativan to 0.5 mg PO BID) Medical Record Reviewed: Yes Mental Status Examination - Cognitive Function Orientation: Person, Place, Situation, Time Memory: Intact Attention: WNL Concentration: WNL Association: WNL Fund of Knowledge: [facility] Decription of patient's judgement and insights: Fair I/J - Mood Mood: Depressed - Affect Affect: Constricted - Speech Speech: Soft - Formal Thought Process Formal Thought Process: Other (Poverty of speech) Psychotic Thoughts and Behaviors: Denies AH/VH/paranoia - Suicidal Ideation Suicidal Ideation: No - Homicidal Ideation Homicidal Ideation: No Goal/Treatment Plan - Goal/Treatment Plan Need for Continued Stay: Remain at risks for inpatient hospitalization, Severe depression anxiety, Discharge may exacerbated symptoms Progress Toward Problem(s) and Goals/Treatment Plan: MDD w/ catatonic features; 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
[2016-11-20] MEDS: Venlafaxine 75 mg ER Cap PO SCH (08:32)
--- NOTE | 2016-11-21 08:39 | PCM.PYCHPN ---
Psychiatric Progress Note - Psychiatric Progress Note Patient seen today, length of contact: Patient evaluated, case discussed with team, chart reviewed, 35 min Patient Chief Complaint: "I'm okay" Problems Identified/Issues Discussed: Patient has worsening of catatonic symptoms with tapering of Ativan. Will increase Ativan back to 0.5 mg PO TID. Patient continues to have periods of psychomotor delay and decreased responsiveness when asked questions. He continues to have depressed mood and constricted affect. He is attending groups with encouragement and participating appropriately. Patient denies AH/VH/SI/ HI. He has been observed eating and drinking appropriately. Medication Change: Yes (Increase Ativan to 0.5 mg PO TID, Increase Effexor to 75 mg PO BID) Medical Record Reviewed: Yes Mental Status Examination - Cognitive Function Orientation: Person, Place, Situation, Time Memory: Intact Attention: WNL Concentration: WNL Association: WNL Fund of Knowledge: [facility] Decription of patient's judgement and insights: Fair I/J - Mood Mood: Depressed - Affect Affect: Constricted - Speech Speech: Soft - Formal Thought Process Formal Thought Process: Other (Poverty of speech) Psychotic Thoughts and Behaviors: Denies AH/VH/paranoia - Suicidal Ideation Suicidal Ideation: No - Homicidal Ideation Homicidal Ideation: No Goal/Treatment Plan - Goal/Treatment Plan Need for Continued Stay: Remain at risks for inpatient hospitalization, Severe depression anxiety, Discharge may exacerbated symptoms Progress Toward Problem(s) and Goals/Treatment Plan: MDD w/ catatonic features; r/o psychotic disorder; patient continues to report severe depression and has continued psychomotor delay and catatonic symptoms. -Continue Remeron 15 mg PO HS -Increase Effexor to 75 mg PO BID -Increase Ativan to 0.5 mg PO TID -Medicine consult appreciated -Neurology consult appreciated; MRI normal, no acute neurological issues at this time -Individual and group therapy -Ativan PRN catatonia Estimated Date of D/C: 11/25/16
[2016-11-22 07:47] LABS: BASO # 0.1 K/uL (0.0-0.2); BASO % 0.6 % (0.0-2.0); EOS # 0.3 K/uL (0.0-0.7); EOS % 2.3 % (0.0-4.0); HEMATOCRIT 42.4 % (35.0-51.0); LYMPH # 3.5 K/uL (1.0-4.3); LYMPH % 26.9 % (20.0-40.0); MEAN CELL VOLUME 87.4 fl (80.0-94.0); MEAN CORPUSCULAR HEMOGLOBIN 28.2 pg (27.0-31.0); MEAN CORPUSCULAR HGB CONC 32.3 g/dL (33.0-37.0); MEAN PLATELET VOLUME 7.9 fl (7.2-11.7); MONO # 0.8 K/uL (0.0-0.8); MONO % 6.4 % (0.0-10.0); NEUT # 8.2 K/uL (1.8-7.0); NEUT % 63.8 % (50.0-75.0); NRBC % 0.1 % (0.0-0.0); RED CELL DISTRIBUTION WIDTH 13.3 % (11.5-14.5); WHITE BLOOD COUNT 12.9 K/uL (4.8-10.8)
[2016-11-22 07:55] LABS: ALB/GLOB RATIO 1.3 (1.0-2.1); ALKALINE PHOSPHATASE 68 U/L (38-126); ALT/SGPT 67 U/L (21-72); AST/SGOT 24 U/L (17-59); BILIRUBIN,TOTAL 0.4 mg/dl (0.2-1.3); BLOOD UREA NITROGEN 14 mg/dl (9-20); CALCIUM 9.4 mg/dL (8.4-10.2); CARBON DIOXIDE 26 mmol/L (22-30); CHLORIDE 103 mmol/L (98-107); GFR AFRICAN-AMERICAN > 60; GLUCOSE,RANDOM 100 mg/dL (75-110); POTASSIUM 4.3 MMOL/L (3.6-5.0); SODIUM 141 mmol/l (132-148); TOTAL PROTEIN 7.5 G/DL (6.3-8.2)
--- NOTE | 2016-11-22 12:57 | PCM.PYCHPN ---
Psychiatric Progress Note - Psychiatric Progress Note Patient seen today, length of contact: Patient evaluated, case discussed with team, chart reviewed, 35 min Patient Chief Complaint: "I'm okay" Problems Identified/Issues Discussed: Patient continues to have intermittent periods of psychomotor delay and decreased responsiveness. He continues to have depressed mood and constricted affect. He is attending groups with encouragement and participating appropriately. Patient denies AH/VH/SI/HI. He has been observed eating and drinking appropriately. Medication Change: No Medical Record Reviewed: Yes Mental Status Examination - Cognitive Function Orientation: Person, Place, Situation, Time Memory: Intact Attention: WNL Concentration: WNL Association: [facility] Fund of Knowledge: [facility] Decription of patient's judgement and insights: Fair I/J - Mood Mood: Depressed - Affect Affect: Constricted - Speech Speech: Soft - Formal Thought Process Formal Thought Process: Other (Poverty of speech) Psychotic Thoughts and Behaviors: Denies AH/VH/paranoia - Suicidal Ideation Suicidal Ideation: No - Homicidal Ideation Homicidal Ideation: No Goal/Treatment Plan - Goal/Treatment Plan Need for Continued Stay: Remain at risks for inpatient hospitalization, Severe depression anxiety, Discharge may exacerbated symptoms Progress Toward Problem(s) and Goals/Treatment Plan: MDD w/ catatonic features; r/o psychotic disorder; patient continues to report severe depression and has continued psychomotor delay and catatonic symptoms. -Continue Remeron 15 mg PO HS -Continue Effexor 75 mg PO BID -Continue Ativan 0.5 mg PO TID -Medicine consult appreciated -Neurology consult appreciated; MRI normal, no acute neurological issues at this time -Individual and group therapy -Ativan PRN catatonia Estimated Date of D/C: 11/25/16
--- NOTE | 2016-11-23 11:06 | PCM.PYCHPN ---
Psychiatric Progress Note - Psychiatric Progress Note Patient seen today, length of contact: Patient evaluated, case discussed with team, chart reviewed, 35 min Patient Chief Complaint: pt has been depressed with constricted afffect and still has poor energy level and with psychomotor retardation Medication Change: No Medical Record Reviewed: Yes Mental Status Examination - Cognitive Function Orientation: Person, Place, Situation, Time Memory: Intact Attention: WNL Concentration: WNL Association: WNL Fund of Knowledge: WNL - Mood Mood: Depressed - Affect Affect: Constricted - Speech Speech: Soft - Formal Thought Process Formal Thought Process: Other (Poverty of speech) - Suicidal Ideation Suicidal Ideation: No - Homicidal Ideation Homicidal Ideation: No Goal/Treatment Plan - Goal/Treatment Plan Need for Continued Stay: Remain at risks for inpatient hospitalization, Severe depression anxiety, Discharge may exacerbated symptoms Progress Toward Problem(s) and Goals/Treatment Plan: will continue to stabilize with effexor and engage pt in therapy Estimated Date of D/C: 11/25/16
--- NOTE | 2016-11-25 12:01 | PCM.PYCHPN ---
Psychiatric Progress Note - Psychiatric Progress Note Patient seen today, length of contact: Patient evaluated, case discussed with team, chart reviewed, 35 min Patient Chief Complaint: "I'm okay" Problems Identified/Issues Discussed: Patient continues to have intermittent periods of psychomotor delay and decreased responsiveness. We discussed increasing the Effexor. He continues to have depressed mood and constricted affect. He is attending groups with encouragement and participating appropriately. Patient denies AH/VH/SI/HI. He has been observed eating and drinking appropriately. Medication Change: Yes (Increase Effexor to 75 mg PO Daily/ 150 mg PO Daily@1700 ) Medical Record Reviewed: Yes Mental Status Examination - Cognitive Function Orientation: Person, Place, Situation, Time Memory: Intact Attention: WNL Concentration: WNL Association: WNL Fund of Knowledge: [facility] Decription of patient's judgement and insights: Fair I/J - Mood Mood: Depressed - Affect Affect: Constricted - Speech Speech: Soft - Formal Thought Process Formal Thought Process: No Impairment Psychotic Thoughts and Behaviors: NO AH/VH/paranoia - Suicidal Ideation Suicidal Ideation: No - Homicidal Ideation Homicidal Ideation: No Goal/Treatment Plan - Goal/Treatment Plan Need for Continued Stay: Remain at risks for inpatient hospitalization, Severe depression anxiety, Discharge may exacerbated symptoms Progress Toward Problem(s) and Goals/Treatment Plan: MDD w/ catatonic features; r/o psychotic disorder; patient has been improving gradually. -Continue Remeron 15 mg PO HS -Increase Effexor to 75 mg PO AM/ 150 mg PO Daily @1700 -Continue Ativan 0.5 mg PO TID -Medicine consult appreciated -Neurology consult appreciated; MRI normal, no acute neurological issues at this time -Individual and group therapy -Ativan PRN catatonia Estimated Date of D/C: 11/26/16
[2016-11-26 05:51] VITALS: BP 119/72; PULSE 79; RESP 18; TEMP 97.1
--- NOTE | 2016-11-26 10:32 | PCM.PYCHDC ---
Mental Status Examination - Mental Status Examination Orientation: Person, Place, Situation, Time Memory: Intact Mood: Neutral Affect: Broad Speech: Appropriate Attention: WNL Concentration: WNL Association: WNL Fund of Knowledge: WNL Formal Thought Process: No Impairment Description of patient's judgement and insight: Fair I/J Psychotic Thoughts and Behaviors: NO AH/VH/paranoia Suicidal Ideation: No Current Homicidal Ideation?: No Discharge Summary - Discharge Note Reason for Hospitalization: HPI: 31yo [place] male referred by Dr. Whitten due to catatonic. As per history patient has been catatonic for 2 days w/ poor sleep and appetite. Patient has a history of depression since his mother . He was a limited historian due to his periods of catatonia and after he recovered s/p receiving Ativan, he still spoke very slowly w/ poverty of speech. Denies AH/VH/SI/HI. PPHx: Outpatient tx w. Dr. Whitten, currently prescribed Seroquel and Remeron. Patient has a h/o admission to [facility] 4 years ago. MHx: HTN ALL: NKDA SHx: Denies drugs/etoh. Consultations:: List each consultation separately and include: 1. Reason for request. 2. Findings. 3. Follow-up Consultations: Medicine Consult- elevated CPK resolved w/ IV fluids, Neurology Consult- no acute neurological issues, catatonia not 2/2 neurological condition Summary of Hospital Course include:: 1. Description of specific treatment plan utilized for patients during their course of treatmen. 2. Summarize the time- course for resolution of acute symptoms and/or regressed behaviors. 3. Describe issues identified and worked on during hospitalization. 4. Describe medication utilized. 5. Describe medical problems identified and treated. 6. Reassessment of suicide risk Summary of Hospital Course: Patient admitted to the psychiatry unit. He was treated for elevated CPK likely 2/2 rhabdomyolysis w/ IV fluids until the CPK returned to normal. He was stabilized on Ativan 0.5 mg PO TID, Effexor 225 mg PO Daily and Remeron 15 mg PO HS. He no longer has periods of catatonia, has improved mood and does not express any ideation to harm himself. Patient is currently psychiatrically stable for discharge. - Final Diagnosis (DSM 5) Condition upon Discharge: STABLE DSM 5: MDD w/ catatonia Disposition: HOME/ ROUTINE Follow-up Treatment Plan: MDD w/ catatonic features; patient is now psychiatrically stable for discharge. -Continue Remeron 15 mg PO HS -Continue Effexor XR 225 mg PO Daily -Continue Ativan 0.5 mg PO TID -Medicine consult appreciated -Neurology consult appreciated; MRI normal, no acute neurological issues at this time -Discharge w/ outpatient f/u w/ Dr. Quintanilla -Psychoeducation provided on the importance of f/u tx and medications Prescriptions/Medication Reconciliation: LORazepam [Ativan] 0.5 mg PO TID #90 tab Mirtazapine [Remeron] 15 mg PO HS #30 tab Venlafaxine HCl [Venlafaxine HCl ER] 225 mg PO DAILY #30 tab.er.[id number] - Smoking Cessation Smoking Cessation Medication prescribed: No Reason for not providing: Not indicated - Antipsychotic Medications Pt discharged on 2 or more routine antipsychotic medications: No
== END 2016-11-26 16:15 | disposition home or self-care (01) | DRG 426 ==
LOC: H.ER 11:07 → H.ERHOLD 16:17 → H.PSYCH 18:17 → H.STEP 11-11 10:53
PROVIDERS: ADMIT Psychiatry & Neurology Psychiatry; ATTEND Psychiatry & Neurology Psychiatry
PROC: GZ51ZZZ Individual Psychotherapy, Behavioral (ICD-10-PCS; 2016-11-09)
PROC: GZHZZZZ Group Psychotherapy (ICD-10-PCS; principal; 2016-11-22)
DX: F32.9 Major depressive disorder, single episode, unspecified (principal); M62.82 Rhabdomyolysis; F06.1 Catatonic disorder due to known physiological condition; I10 Essential (primary) hypertension; E78.5 Hyperlipidemia, unspecified; D72.829 Elevated white blood cell count, unspecified; R41.82 Altered mental status, unspecified